=== PATIENT | male | born 1975 | race American Indian/Alaskan Native ===

== ENCOUNTER 2017-02-01 05:20 | Emergency (ER) | payer SELFPAY ==
[2017-02-01 05:52] LABS: Basophils % (Auto) 0.6 % (0.0-1.8); Eosinophils % (Auto) 3.4 % (0.0-4.3); Hematocrit 44.5 % (35.5-45.6); Hemoglobin 15.2 gm/dl (11.8-15.2); Mean Corpuscular HGB Conc 34 % (32-34); Mean Corpuscular Hemoglobin 30 pg (28-32); Mean Corpuscular Volume 87 fl (84-94); Platelet Count 199 K/mm3 (140-440); Red Blood Count 5.12 M/mm3 (3.65-5.03); Red Cell Distribution Width 14.4 % (13.2-15.2); White Blood Count 6.8 K/mm3 (4.5-11.0)
[2017-02-01 06:03] LABS: Anion Gap 19 mmol/L; Blood Urea Nitrogen 10 mg/dL (9-20); Carbon Dioxide 22 mmol/L (22-30); Chloride 100.9 mmol/L (98-107); Glucose 116 mg/dL (75-100); Potassium 3.9 mmol/L (3.6-5.0); Sodium 138 mmol/L (137-145)
[2017-02-01 06:51] LABS: Bilirubin,Urine NEG (Negative); Blood,Urine NEG (Negative); Ketones,Urine NEG (Negative); Leukocyte Esterase,Urine NEG (Negative); Mucus,Urine FEW /HPF; Nitrite,Urine NEG (Negative); Protein,Urine <15 mg/dL mg/dL (Negative); Urobilinogen,Urine < 2.0 mg/dL (<2.0)
--- NOTE | 2017-02-01 08:13 | Emergency Department Report ---
ED ENT HPI - General Chief complaint: Sore Throat Stated complaint: SORE THROAT/WEAKNESS Source: patient Mode of arrival: Ambulatory Limitations: No Limitations - History of Present Illness Initial comments: 41 year old male presents to ED with chronic sore throat and cough x6 months. patient states he thinks he may have swelling in his neck at times but he is unsure. patient is stable, neurologically intact and in no acute distress. patient denies fever, weight loss, hemoptysis, weakness. MD complaint: sore throat, difficulty swallowing -: Gradual, month(s) (6) Location: throat Severity: mild Consistency: intermittent Improves with: none Worsens with: swallowing, other (cough) Associated Symptoms: cough, pain with swallowing, sore throat. denies: fever, toothache, tinnitus, hearing loss, discharge from ear, rhinorrhea - Related Data Previous Rx's Medication Instructions Recorded Last Taken Type Ketorolac [Toradol] 10 mg PO Q6H PRN #20 tablet 02/01/17 Unknown Rx guaiFENesin DM [Robitussin Dm] 5 ml PO BID #120 ml 02/01/17 Unknown Rx Allergies Allergy/AdvReac Type Severity Reaction Status Date / Time No Known Allergies Allergy Verified 02/01/17 05:26 ED Dental HPI - General Chief complaint: Sore Throat Stated complaint: SORE THROAT/WEAKNESS Source: patient Mode of arrival: Ambulatory Limitations: No Limitations - Related Data Previous Rx's Medication Instructions Recorded Last Taken Type Ketorolac [Toradol] 10 mg PO Q6H PRN #20 tablet 02/01/17 Unknown Rx guaiFENesin DM [Robitussin Dm] 5 ml PO BID #120 ml 02/01/17 Unknown Rx Allergies Allergy/AdvReac Type Severity Reaction Status Date / Time No Known Allergies Allergy Verified 02/01/17 05:26 ED Review of Systems ROS: Stated complaint: SORE THROAT/WEAKNESS Other details as noted in HPI Constitutional: denies: chills, fever Eyes: denies: eye pain, eye discharge, vision change ENT: throat pain. denies: ear pain, dental pain, hearing loss, congestion Respiratory: cough. denies: shortness of breath, wheezing Cardiovascular: denies: chest pain, palpitations Endocrine: no symptoms reported Gastrointestinal: denies: abdominal pain, nausea, diarrhea Genitourinary: denies: urgency, dysuria Musculoskeletal: denies: back pain, joint swelling, arthralgia Skin: denies: rash, lesions Neurological: denies: headache, weakness, paresthesias Psychiatric: denies: anxiety, depression Hematological/Lymphatic: denies: easy bleeding, easy bruising ED Past Medical Hx - Past Medical History Previous Medical History?: No Hx Hypertension: Yes - Surgical History Past Surgical History?: No - Social History Smoking Status: Never Smoker Substance Use Type: Alcohol - Medications Home Medications: Home Medications Medication Instructions Recorded Confirmed Last Taken Type Ketorolac [Toradol] 10 mg PO Q6H PRN #20 tablet 02/01/17 Unknown Rx guaiFENesin DM [Robitussin Dm] 5 ml PO BID #120 ml 02/01/17 Unknown Rx ED Physical Exam - General Limitations: No Limitations General appearance: alert, in no apparent distress - Head Head exam: Present: atraumatic, normocephalic - Eye Eye exam: Present: normal appearance - ENT ENT exam: Present: normal exam, normal orophraynx, mucous membranes dry, mucous membranes moist, TM's normal bilaterally - Neck Neck exam: Present: normal inspection, full ROM. Absent: tenderness, lymphadenopathy - Respiratory Respiratory exam: Present: normal lung sounds bilaterally. Absent: respiratory distress, wheezes - Cardiovascular Cardiovascular Exam: Present: regular rate, normal rhythm. Absent: systolic murmur, diastolic murmur, rubs, gallop - GI/Abdominal GI/Abdominal exam: Present: soft, normal bowel sounds. Absent: tenderness, guarding - Rectal Rectal exam: Present: deferred - Extremities Exam Extremities exam: Present: normal inspection, full ROM - Back Exam Back exam: Present: normal inspection, full ROM - Neurological Exam Neurological exam: Present: alert, oriented X3, normal gait - Psychiatric Psychiatric exam: Present: normal affect, normal mood - Skin Skin exam: Present: warm, dry, intact, normal color. Absent: rash ED Course Vital Signs 02/01/17 02/01/17 02/01/17 05:21 05:26 10:39 Temperature 98.7 F 98.7 F 98 F Pulse Rate 85 85 62 Respiratory 18 18 18 Rate Blood Pressure 159/108 Blood Pressure 159/108 180/113 [Right] O2 Sat by Pulse 98 98 100 Oximetry 02/01/17 12:00 Temperature Pulse Rate 80 Respiratory 16 Rate Blood Pressure Blood Pressure 152/100 [Right] O2 Sat by Pulse 99 Oximetry ED Medical Decision Making - Lab Data Result diagrams: 02/01/17 05:35 02/01/17 05:35 Labs 02/01/17 02/01/17 02/01/17 05:35 05:35 08:10 WBC 6.8 RBC 5.12 H Hgb 15.2 Hct 44.5 MCV 87 MCH 30 MCHC 34 RDW 14.4 Plt Count 199 Lymph % (Auto) 32.4 [place] % (Auto) 12.3 H Eos % (Auto) 3.4 Baso % (Auto) 0.6 Lymph # 2.2 [place] # 0.8 Eos # 0.2 Baso # 0.0 Seg Neutrophils % 51.3 Seg Neutrophils # 3.5 Sodium 138 Potassium 3.9 Chloride 100.9 Carbon Dioxide 22 Anion Gap 19 BUN 10 Creatinine 0.8 Estimated GFR > 60 BUN/Creatinine Ratio 12.50 Glucose 116 H Calcium 9.0 TSH 2.010 Urine Color Urine Turbidity Urine pH Ur Specific [place] Urine Protein Urine Glucose (UA) Urine Ketones Urine Blood Urine Nitrite Urine Bilirubin Urine Urobilinogen Ur Leukocyte Esterase Urine WBC (Auto) Urine RBC (Auto) U Epithel Cells (Auto) Urine Mucus 02/01/17 Unknown WBC RBC Hgb Hct MCV MCH MCHC RDW Plt Count Lymph % (Auto) [place] % (Auto) Eos % (Auto) Baso % (Auto) Lymph # [place] # Eos # Baso # Seg Neutrophils % Seg Neutrophils # Sodium Potassium Chloride Carbon Dioxide Anion Gap BUN Creatinine Estimated GFR BUN/Creatinine Ratio Glucose Calcium TSH Urine Color Yellow Urine Turbidity Clear Urine pH 5.0 Ur Specific [place] 1.021 Urine Protein <15 mg/dl Urine Glucose (UA) Neg Urine Ketones Neg Urine Blood Neg Urine Nitrite Neg Urine Bilirubin Neg Urine Urobilinogen < 2.0 Ur Leukocyte Esterase Neg Urine WBC (Auto) 1.0 Urine RBC (Auto) 2.0 U Epithel Cells (Auto) < 1.0 Urine Mucus Few Vital Signs 02/01/17 02/01/17 02/01/17 05:21 05:26 10:39 Temperature 98.7 F 98.7 F 98 F Pulse Rate 85 85 62 Respiratory 18 18 18 Rate Blood Pressure 159/108 Blood Pressure 159/108 180/113 [Right] O2 Sat by Pulse 98 98 100 Oximetry 02/01/17 12:00 Temperature Pulse Rate 80 Respiratory 16 Rate Blood Pressure Blood Pressure 152/100 [Right] O2 Sat by Pulse 99 Oximetry - Radiology Data Radiology results: report reviewed Xr Chest limited inspiration with mild exaggerated cardiomediastinal silhouette and slightly crowded marking toward the bases. No pleural effusions or CHF. Intact bones. Limited inspiration without acute chest process. CT st neck with contrast Unremarkable CT neck. - Medical Decision Making 41 year old male presents to ED with chronic sore throat and subjective swelling. CT scan performed due to duration of pain to check for mass/cancerous process. patient has no acute process on CT scan of neck and no acute finding on chest xray. patient will be given referral to new PCP. patient is stable, neurologically intact and in no acute distress. Critical care attestation.: If time is entered above; I have spent that time in minutes in the direct care of this critically ill patient, excluding procedure time. ED Disposition Clinical Impression: Sore throat Disposition: DC-01 TO HOME OR SELFCARE Is pt being admited?: No Does the pt Need Aspirin: No Condition: Stable Prescriptions: guaiFENesin DM [Robitussin Dm] 5 ml PO BID #120 ml Ketorolac [Toradol] 10 mg PO Q6H PRN #20 tablet PRN Reason: Pain Referrals: PRIMARY CARE, [Primary Care Provider] - 3-5 Days JOSÉ MIGUEL CALVO MD [Staff Physician] - 3-5 Days Forms: Work/School Release Form(ED)
--- NOTE | 2017-02-01 09:46 | Cat Scan Report ---
CT NECK WITH CONTRAST: HISTORY: Chronic sore throat and swelling. TECHNIQUE: Helical CT following IV contrast. Sagittal and coronal reformatted images. FINDINGS: The parotid and submandibular glands are normal. The carotid sheaths are intact. There is no evidence of adenopathy within the neck. The thyroid gland is normal. The glottic structures are normal. The airway is patent. Strap musculature is unremarkable. Hyoid bone and thyroid cartilage are intact. 1.5 cm mucous retention cyst versus polyp is noted in the inferior left maxillary sinus. IMPRESSION: Unremarkable CT neck.
[2017-02-01] MEDS ORDERED: CATAPRES PO ONE (10:39)
--- NOTE | 2017-02-01 11:03 | XRay Report ---
CHEST 2 VIEWS INDICATION: Cough. COMPARISON: None similar. FINDINGS: PA and lateral chest radiographs demonstrate limited inspiration with mild exaggerated cardiomediastinal silhouette and slightly crowded markings toward the bases. No pleural effusions or CHF. Right hemidiaphragm slightly elevated. Intact bones. CONCLUSION: Limited inspiration without acute chest process, as described. Thank you for the opportunity to participate in this patient's care.
[2017-02-01 12:01] VITALS: BP 152/100
== END 2017-02-01 12:01 | disposition home or self-care (01) ==
LOC: ED 05:20
DX: J02.9 Acute pharyngitis, unspecified (principal); I10 Essential (primary) hypertension
CPT/HCPCS: 36415; 70491; 71020; 80048; 81001; 84443; 85025; 87116; 87430; 99284; Q9967

== ENCOUNTER 2017-05-13 02:19 | Emergency (ER) | payer SELFPAY ==
[2017-05-13 02:29] VITALS: BP 188/115
[2017-05-13 03:59] LABS: Hematocrit 44.6 % (35.5-45.6); Hemoglobin 15.1 gm/dl (11.8-15.2); Mean Corpuscular HGB Conc 34 % (32-34); Mean Corpuscular Hemoglobin 30 pg (28-32); Mean Corpuscular Volume 89 fl (84-94); Platelet Count 187 K/mm3 (140-440); Red Blood Count 5.03 M/mm3 (3.65-5.03); White Blood Count 5.1 K/mm3 (4.5-11.0)
[2017-05-13 04:17] LABS: Anion Gap 16 mmol/L; Blood Urea Nitrogen 13 mg/dL (9-20); Calcium 9.2 mg/dL (8.4-10.2); Carbon Dioxide 31 mmol/L (22-30); Glucose 107 mg/dL (75-100); Potassium 4.2 mmol/L (3.6-5.0); Sodium 142 mmol/L (137-145)
[2017-05-13 05:09] LABS: Basophils % (Manual) 0 % (0.0-1.8); Blastocytes % (Manual) 0 %; Diff Status Complete; Platelet Estimate Consistent w Auto; RBC Morphology Normal
--- NOTE | 2017-05-13 06:23 | Cat Scan Report ---
FINAL REPORT EXAM: CT HEAD/BRAIN WO CON HISTORY: neuro deficits \T\lt; 6hrs or sx present upon awakening TECHNIQUE: Routine axial imaging was obtained of the brain without IV contrast. FINDINGS: The ventricular system is appropriate in size and is symmetric. There is no evidence of acute stroke or hemorrhage. The posterior fossa structures are well-maintained. The sinuses reveal extensive secretions in the right maxillary, right ethmoidal and right sphenoid sinuses. The mastoid air cells well pneumatized. IMPRESSION: No evidence of acute stroke or hemorrhage. Right ethmoidal, maxillary and sphenoid sinusitis.
--- NOTE | 2017-05-13 07:35 | XRay Report ---
FINAL REPORT EXAM: XR CHEST ROUTINE 2V HISTORY: neuro deficit TECHNIQUE: Two views of the chest were submitted. There are no previous studies available for comparison. FINDINGS: The heart size and pulmonary vascularity appear normal. There are no localized infiltrates or effusions. The bones and soft tissues well maintained. IMPRESSION: No acute process in the chest.
== END 2017-05-13 10:07 | disposition left against medical advice (07) ==
LOC: ED 02:19
DX: R51 Headache (principal); R05 Cough; Z53.21 Procedure and treatment not carried out due to patient leaving prior to being seen by health care provider
CPT/HCPCS: 36415; 70450; 71020; 80048; 84484; 85007; 85025; 93005; 93010

== ENCOUNTER 2017-05-13 12:49 | Emergency (ER) | payer SELFPAY ==
[2017-05-13] MEDS ORDERED: CATAPRES PO ONE (18:19)
[2017-05-13] MEDS ORDERED: MOTRIN PO ONE (18:19)
--- NOTE | 2017-05-13 18:19 | Emergency Department Report ---
- General Chief Complaint: Upper Respiratory Infection Stated Complaint: CAMPOS/LEFT HAND FREEZE Time Seen by Provider: 05/13/17 17:28 Source: patient Mode of arrival: Ambulatory Limitations: Language Barrier - History of Present Illness Initial Comments: This is a 41-year-old male nontoxic, well nourished in appearance, no acute signs of distress presents to the ED complaining of headache, frontal sinus pain, and dry cough x3 days. Patient denies sick contact. Patient denies any head trauma. Patient denies worst headache or thunderclap headache. Patient describes headache as diffuse with level of 7/10 and describes it as aching/ throbbing. Patient denies blurry vision, chest pain, shortness of breathe, fever, chills, nausea, vomiting, sore throat, stiff neck, visual changes. Patient denies any trauma to the region. Denies any drug allergies. Past medical history includes hypertension that is treated with diet as per patient. MD Complaint: cough, nasal congestion, sinus pain -: Gradual, days(s) (3) Severity: mild Severity scale (0 -10): 7 Quality: aching, other (throbbing) Consistency: constant Improves With: nothing Worsens With: nothing Associated Symptoms: nasal congestion, cough. denies: fever, chills, myalgias, diaphoresis, headache, rhinorrhea, sore throat, stiff neck, chest pain, shortness of breath, abdominal pain, nausea, vomiting, diarrhea, dysuria, rash, confusion, right sweats, weight loss, epistaxis, hoarseness, ear pain Treatments Prior to Arrival: none - Related Data Previous Rx's Medication Instructions Recorded Last Taken Type Ketorolac [Toradol] 10 mg PO Q6H PRN #20 tablet 02/01/17 Unknown Rx guaiFENesin DM [Robitussin Dm] 5 ml PO BID #120 ml 02/01/17 Unknown Rx Amoxicillin/K Clav Tab [Augmentin 1 tab PO Q12HR 20 Days 05/13/17 Unknown Rx 875 mg] Butalb/Acetamin/Caff 50-325-40 1 tab PO Q6HR PRN #30 tab 05/13/17 Unknown Rx [Fioricet] Allergies Allergy/AdvReac Type Severity Reaction Status Date / Time No Known Allergies Allergy Verified 02/01/17 05:26 ED Review of Systems ROS: Stated complaint: CAMPOS/LEFT HAND FREEZE Other details as noted in HPI Constitutional: denies: chills, fever Eyes: denies: eye pain, eye discharge, vision change ENT: denies: ear pain, throat pain Respiratory: cough. denies: shortness of breath, wheezing Cardiovascular: denies: chest pain, palpitations Endocrine: no symptoms reported Gastrointestinal: denies: abdominal pain, nausea, diarrhea Genitourinary: denies: urgency, dysuria Musculoskeletal: denies: back pain, joint swelling, arthralgia Skin: denies: rash, lesions Neurological: denies: headache, weakness, paresthesias Psychiatric: denies: anxiety, depression Hematological/Lymphatic: denies: easy bleeding, easy bruising ED Past Medical Hx - Past Medical History Hx Hypertension: Yes (denies meds) - Surgical History Past Surgical History?: No - Social History Smoking Status: Never Smoker Substance Use Type: Alcohol - Medications Home Medications: Home Medications Medication Instructions Recorded Confirmed Last Taken Type Ketorolac [Toradol] 10 mg PO Q6H PRN #20 tablet 02/01/17 Unknown Rx guaiFENesin DM [Robitussin Dm] 5 ml PO BID #120 ml 02/01/17 Unknown Rx Amoxicillin/K Clav Tab [Augmentin 1 tab PO Q12HR 20 Days 05/13/17 Unknown Rx 875 mg] Butalb/Acetamin/Caff 50-325-40 1 tab PO Q6HR PRN #30 tab 05/13/17 Unknown Rx [Fioricet] ED Physical Exam - General Limitations: Language Barrier General appearance: alert, in no apparent distress - Head Head exam: Present: atraumatic, normocephalic, normal inspection - Eye Eye exam: Present: normal appearance, PERRL, EOMI. Absent: scleral icterus, conjunctival injection, nystagmus, periorbital swelling, periorbital tenderness Pupils: Present: normal accommodation - ENT ENT exam: Present: normal exam, normal orophraynx, mucous membranes moist, TM's normal bilaterally, normal external ear exam - Neck Neck exam: Present: normal inspection, full ROM. Absent: tenderness, meningismus, lymphadenopathy, thyromegaly - Respiratory Respiratory exam: Present: normal lung sounds bilaterally. Absent: respiratory distress, wheezes, rales, rhonchi, stridor, chest wall tenderness, accessory muscle use, decreased breath sounds, prolonged expiratory - Cardiovascular Cardiovascular Exam: Present: regular rate, normal rhythm, normal heart sounds. Absent: bradycardia, tachycardia, irregular rhythm, systolic murmur, diastolic murmur, rubs, gallop - GI/Abdominal GI/Abdominal exam: Present: soft, normal bowel sounds. Absent: distended, tenderness, guarding, rebound, rigid, diminished bowel sounds - Rectal Rectal exam: Present: deferred - Extremities Exam Extremities exam: Present: normal inspection, full ROM, normal capillary refill. Absent: tenderness, pedal edema, joint swelling, calf tenderness - Back Exam Back exam: Present: normal inspection, full ROM. Absent: tenderness, CVA tenderness (R), CVA tenderness (L), muscle spasm, paraspinal tenderness, vertebral tenderness, rash noted - Neurological Exam Neurological exam: Present: alert, oriented X3, CN II-XII intact, normal gait, reflexes normal - Expanded Neurological Exam Expanded Patient oriented to: Present: person, place, time Speech: Present: fluid speech Cranial nerves: EOM's Intact: Normal, Gag Reflex: Normal, Tongue Deviation: Normal, Nystagmus: Normal, Facial Sensation: Normal, Facial Palsy with Forehead Movement: Normal, Facial Palsy without Forehead Movement: Normal Cerebellar function: Finger to Nose: Normal, Heel to Petty: Normal, Romberg: Normal Upper motor neuron: Felice Neglect: Normal, Pronator Drift: Normal, Babinski Sign : Normal, Sensory Extinction: Normal Sensory exam: Upper Extremity Light Touch: Normal, Upper Extremity Pin Prick: Normal, Upper Extremity Temperature: Normal, UE 2 Point Discrimination: Normal, Lower Extremity Light Touch: Normal, Lower Extremity Pin Prick: Normal, Lower Extremity Temperature: Normal, LE 2 Point Discrimination: Normal Motor strength exam: RUE: 5, LUE: 5, RLE: 5, LLE: 5 DTR: bicep (R): 2+, bicep (L): 2+, tricep (R): 2+, tricep (L): 2+, knee (R): 2+ , knee (L): 2+, ankle (R): 2+, ankle (L): 2+ Best Eye Response ([place]): (4) open spontaneously Best Motor Response ([place]): (6) obeys commands Best Verbal Response ([place]): (5) oriented [place] Total: 15 - Psychiatric Psychiatric exam: Present: normal affect, normal mood - Skin Skin exam: Present: warm, dry, intact, normal color. Absent: rash - Other Other exam information: Frontal sinus tenderness with palpation ED Course Vital Signs 05/13/17 13:11 Temperature 98.1 F Pulse Rate 69 Respiratory 18 Rate Blood Pressure 165/106 O2 Sat by Pulse 99 Oximetry - Reevaluation(s) Reevaluation #1: 05/13/17 18:25 Patient is eating [employer] and speaking in full sentences with no signs of distress noted. ED Medical Decision Making - Medical Decision Making This is a 41-year-old male that presents with sinusitis. CT scan of head/brain and chest x-ray has been obtained with sinusitis. Dictated by radiologist. Patient notified of CT findings and x-ray results with normal by the patient. Patient received ibuprofen 800 mg by mouth in the ED for headache and Catapres 0.1 mg by mouth. Blood pressure decreased after Catapres. I educated instruct the patient about risks of having hypertension and patient stated he is aware and will follow up with a primary care doctor. I instructed the patient to keep a blood pressure diary and presented to the primary care doctor. Patient was instructed to follow-up with a primary care doctor in 24 hours or if symptoms worsen and continue return to emergency room as soon as possible possible. At time time of discharge, the patient does not seem toxic or ill in appearance. No acute signs of distress noted. Patient agrees to discharge treatment plan of care. No further questions noted by the patient. Critical care attestation.: If time is entered above; I have spent that time in minutes in the direct care of this critically ill patient, excluding procedure time. ED Disposition Clinical Impression: Hypertension Qualifiers: Hypertension type: unspecified Qualified Code(s): I10 - Essential (primary) hypertension Sinusitis Qualifiers: Sinusitis location: frontal Chronicity: acute Recurrence: non-recurrent Qualified Code(s): J01.10 - Acute frontal sinusitis, unspecified Disposition: - TO HOME OR SELFCARE Is pt being admited?: No Does the pt Need Aspirin: No Condition: Stable Instructions: Hypertension (ED), Low Sodium Diet (ED), Ibuprofen (By mouth), Amoxicillin/Clavulanate Potassium (By mouth), Sinusitis (ED) Additional Instructions: Follow-up with a primary care doctor in 24 hours for your hypertension or if symptoms worsen and continue return to emergency room as soon as possible possible. Keep a daily diary of your blood pressure and presented to your primary care doctor. Prescriptions: Amoxicillin/K Clav Tab [Augmentin 875 mg] 1 tab PO Q12HR 20 Days Butalb/Acetamin/Caff 50-325-40 [Fioricet] 1 tab PO Q6HR PRN #30 tab PRN Reason: Headache Referrals: [facility] [Outside] - 3-5 Days [facility] [Outside] - 3-5 Days PRIMARY CARE, [Primary Care Provider] - 24 Hours BENNIE SHETH MD [Staff Physician] - 24 Hours Forms: Work/School Release Form(ED)
--- NOTE | 2017-05-13 18:32 | XRay Report ---
FINAL REPORT PROCEDURE: XR CHEST 1V AP TECHNIQUE: Chest radiograph anteroposterior view. CPT 09860 HISTORY: cough COMPARISON: Chest x-ray dated the same day FINDINGS: Heart: Normal. Mediastinum/Vessels: Normal. Lungs/Pleural space: Normal. Bony thorax: No acute osseous abnormality. Life support devices: None. IMPRESSION: No acute cardiopulmonary abnormality.
[2017-05-13 20:39] VITALS: BP 160/98
== END 2017-05-13 20:55 | disposition home or self-care (01) ==
LOC: ED 12:49
DX: I10 Essential (primary) hypertension (principal); J32.1 Chronic frontal sinusitis
CPT/HCPCS: 71010; 99283

== ENCOUNTER 2017-05-22 01:55 | Emergency (ER) | payer SELFPAY ==
[2017-05-22 03:21] LABS: Basophils % (Auto) 0.7 % (0.0-1.8); Eosinophils % (Auto) 2.9 % (0.0-4.3); Hematocrit 45.6 % (35.5-45.6); Hemoglobin 15.6 gm/dl (11.8-15.2); Mean Corpuscular HGB Conc 34 % (32-34); Mean Corpuscular Hemoglobin 30 pg (28-32); Mean Corpuscular Volume 88 fl (84-94); Platelet Count 226 K/mm3 (140-440); Red Blood Count 5.18 M/mm3 (3.65-5.03); Red Cell Distribution Width 14.5 % (13.2-15.2); White Blood Count 7.1 K/mm3 (4.5-11.0)
[2017-05-22 03:32] LABS: Anion Gap 20 mmol/L; BUN/Creatinine Ratio 21; Blood Urea Nitrogen 19 mg/dL (9-20); Calcium 9.8 mg/dL (8.4-10.2); Carbon Dioxide 27 mmol/L (22-30); Chloride 96.9 mmol/L (98-107); Glucose 129 mg/dL (75-100); Potassium 3.2 mmol/L (3.6-5.0); Sodium 141 mmol/L (137-145)
[2017-05-22 04:02] LABS: Bilirubin,Urine NEG (Negative); Blood,Urine NEG (Negative); Ketones,Urine NEG (Negative); Leukocyte Esterase,Urine NEG (Negative); Mucus,Urine FEW /HPF; Nitrite,Urine NEG (Negative); Protein,Urine <15 mg/dL mg/dL (Negative); Urobilinogen,Urine < 2.0 mg/dL (<2.0); WBC,Urine < 1.0 /HPF (0.0-6.0)
--- NOTE | 2017-05-22 08:25 | XRay Report ---
CHEST 2 VIEWS INDICATION: Shortness of breath. Epigastric pain radiating to upper back for 3 days. Cough. COMPARISON: 05/13/2017 FINDINGS: PA and lateral chest radiographs demonstrate slightly better inspiration with normal cardiomediastinal silhouette. Right hemidiaphragm again slightly elevated. Slightly prominent/crowded infrahilar markings. No pleural effusions or CHF. Intact bones. CONCLUSION: No acute chest process or significant interval change, as described. Thank you for the opportunity to participate in this patient's care.
[2017-05-22] MEDS ORDERED: K-DUR PO ONE (10:22)
--- NOTE | 2017-05-22 10:42 | Emergency Department Report ---
ED Chest Pain HPI - General Chief Complaint: Chest Pain Stated Complaint: ABD PAIN Time Seen by Provider: 05/22/17 10:20 Source: patient Mode of arrival: Ambulatory Limitations: No Limitations - History of Present Illness Initial Comments: This is a 41-year-old -Swiss male who presents to the emergency department with complaint of midsternal left-sided chest pain with some radiation to the upper back that has been going on for the past 3 days. It is associated with a mixed dry and productive cough and some shortness of breath. He denies any nausea, vomiting, diaphoresis. He has not taken anything for his symptoms prior to presentation. He has a primary care physician in [place] but cannot currently regular name and has not seen them regarding his symptoms. He has a past medical history of hypertension. He denies any tobacco or illicit drug use or abuse. No recent travel or sick contacts at home. Severity scale (0 -10): 8 - Related Data Previous Rx's Medication Instructions Recorded Last Taken Type Ketorolac [Toradol] 10 mg PO Q6H PRN #20 tablet 02/01/17 Unknown Rx guaiFENesin DM [Robitussin Dm] 5 ml PO BID #120 ml 02/01/17 Unknown Rx Amoxicillin/K Clav Tab [Augmentin 1 tab PO Q12HR 20 Days 05/13/17 Unknown Rx 875 mg] Butalb/Acetamin/Caff 50-325-40 1 tab PO Q6HR PRN #30 tab 05/13/17 Unknown Rx [Fioricet] Allergies Allergy/AdvReac Type Severity Reaction Status Date / Time No Known Allergies Allergy Verified 02/01/17 05:26 Heart Score - HEART Score History: Slightly suspicious EKG: Non-specific Age: < 45 Risk factors: 1-2 risk factors Troponin: < normal limit HEART Score: 2 - Critical Actions Critical Actions: 0-3 pts:0.9-1.7%risk of adverse cardiac event.Candidate for discharge ED Review of Systems ROS: Stated complaint: ABD PAIN Other details as noted in HPI Comment: All other systems reviewed and negative Constitutional: denies: chills, fever Eyes: denies: eye pain, eye discharge, vision change ENT: denies: ear pain, throat pain Respiratory: cough, shortness of breath Cardiovascular: chest pain. denies: palpitations Gastrointestinal: denies: abdominal pain, nausea, diarrhea Genitourinary: denies: urgency, dysuria Musculoskeletal: back pain. denies: arthralgia Skin: denies: rash, lesions Neurological: denies: headache, weakness, paresthesias ED Past Medical Hx - Past Medical History Previous Medical History?: Yes Hx Hypertension: Yes (denies meds) - Surgical History Past Surgical History?: No - Social History Smoking Status: Former Smoker Substance Use Type: Alcohol - Medications Home Medications: Home Medications Medication Instructions Recorded Confirmed Last Taken Type Ketorolac [Toradol] 10 mg PO Q6H PRN #20 tablet 02/01/17 Unknown Rx guaiFENesin DM [Robitussin Dm] 5 ml PO BID #120 ml 02/01/17 Unknown Rx Amoxicillin/K Clav Tab [Augmentin 1 tab PO Q12HR 20 Days 05/13/17 Unknown Rx 875 mg] Butalb/Acetamin/Caff 50-325-40 1 tab PO Q6HR PRN #30 tab 05/13/17 Unknown Rx [Fioricet] ED Physical Exam - General Limitations: No Limitations - Other Other exam information: GENERAL: The patient is well-developed well-nourished. HENT: Normocephalic. Atraumatic. Patient has moist mucous membranes. EYES: Extraocular motions are intact. Pupils equal reactive to light bilaterally. NECK: Supple. Trachea is midline. CHEST/LUNGS: Clear to auscultation. There is no respiratory distress noted. HEART/CARDIOVASCULAR: Regular. There is no tachycardia. There is no gallop rub or murmur. ABDOMEN: Abdomen is soft, nontender. Patient has normal bowel sounds. There is no abdominal distention. SKIN: Skin is warm and dry. NEURO: The patient is awake, alert, and oriented. The patient is cooperative. The patient has no focal neurologic deficits. The patient has normal speech. MUSCULOSKELETAL: There is no tenderness or deformity. There is no limitation range of motion. There is no evidence of acute injury. ED Course Vital Signs 05/22/17 05/22/17 05/22/17 02:01 02:18 07:38 Temperature 98.3 F 98.3 F 98.0 F Pulse Rate 107 H 101 H 82 Respiratory 20 18 16 Rate Blood Pressure 130/90 130/90 129/91 Blood Pressure [Left] O2 Sat by Pulse 98 98 99 Oximetry 05/22/17 05/22/1705/22/17 08:33 08:41 11:11 Temperature 97.9 F 97.6 F Pulse Rate 74 79 Respiratory 18 18 18 Rate Blood Pressure Blood Pressure 129/90 132/98 [Left] O2 Sat by Pulse 100 Oximetry JLUIS score - Jluis Score Age > 65: (0) No Aspirin use within the Past 7 Days: (0) No 3 or more CAD Risk Factors: (0) No 2 or more Angina events in past 24 hrs: (1) Yes Known CAD with more than 50% Stenosis: (0) No Elevated Cardiac Markers: (0) No ST Deviation Greater than 0.5mm: (0) No JLUIS Score: 1 ED Medical Decision Making - Lab Data Result diagrams: 05/22/17 02:40 05/22/17 02:40 - EKG Data -: EKG Interpreted by Me EKG shows normal: sinus rhythm, axis (LAD), intervals, QRS complexes, ST-T waves (T-wave inversions to the inferior leads) Rate: normal - EKG Data When compared to previous EKG there are: no significant change Interpretation: unchanged when compared t (05/18/17) - Radiology Data Radiology results: image reviewed interpreted by me: Chest x-ray does not show any acute process. There are no pleural effusions, obvious pneumonia and there is no pneumothorax. - Medical Decision Making 41-year-old male presents with a 3 day history of some chest pain with some radiation towards the back. By the time I have seen him his pain is almost completely resolved and has completely resolved just prior to discharge. EKG does not show any signs of ST elevation RI. There are a few T-wave inversions to the inferior leads that are unchanged but there is no sign of dysrhythmia. Chest x-ray does not show any pleural effusion, pneumothorax, pneumonia or any other acute process. His labs have been unremarkable including negative troponins 3 and a negative d-dimer. He is low on the Heart score criteria. He has a JLUIS score of one if his pain is considered angina and 0 if not. He does not have many risk factors for coronary artery disease. He has good follow -up with a primary care physician Jono Phoenix. He will be given a referral for cardiology to follow up and possibly get an outpatient stress test. However he has agreed to return to the emergency department with any recurrence of his chest pain or any acute distress. - Differential Diagnosis RI, PE, costochondritis, pneumonia, GERD Critical Care Time: No Critical care attestation.: If time is entered above; I have spent that time in minutes in the direct care of this critically ill patient, excluding procedure time. ED Disposition Clinical Impression: Chest pain Qualifiers: Chest pain type: unspecified Qualified Code(s): R07.9 - Chest pain, unspecified Disposition: DC-01 TO HOME OR SELFCARE Is pt being admited?: No Condition: Stable Instructions: Chest Pain (ED) Additional Instructions: Please follow-up with your primary care physician in the next few days. I have given you a referral for a local fur clipper, Dr. Bill, to follow up regarding your chest pains. However you should return to the emergency department with any recurrence of your chest pain or any acute distress. Referrals: PRIMARY MD STACY [Primary Care Provider] - 3-5 Days FRANKIE BILL MD [Staff Physician] - 3-5 Days Time of Disposition: 11:54
[2017-05-22] MEDS ORDERED: BABY ASPIRIN PO ONE (10:43)
[2017-05-22 11:51] VITALS: BP 132/98
== END 2017-05-22 12:20 | disposition home or self-care (01) ==
LOC: ED 01:55
DX: R07.89 Other chest pain (principal); R05 Cough; R06.02 Shortness of breath; I10 Essential (primary) hypertension; Z87.891 Personal history of nicotine dependence
CPT/HCPCS: 36415; 71020; 80048; 81001; 84484; 85025; 85379; 93005; 93010; 99284

== ENCOUNTER 2019-01-14 06:24 | Emergency (ER) | payer SELFPAY ==
[2019-01-14 06:31] VITALS: BP 161/101
--- NOTE | 2019-01-14 07:10 | XRay Report ---
PROCEDURE: XR RIBS UNI W PA CHEST 3+V RT TECHNIQUE: A PA view the chest was obtained along with 4 views of the right ribs. HISTORY: cough with rib pain COMPARISONS: Chest x-ray 02/01/2017. FINDINGS: There is a healing fracture along the anterolateral aspect of the right fifth rib which appears subac laura in age. There are no additional rib fractures. The lungs are clear. Pleural fluid is not seen. Th ere is no evidence of pneumothorax. The heart size is normal. IMPRESSION: Healing subacute fracture along the anterolateral aspect of the right fifth rib.. This document is electronically signed by Anderson Steve MD., January 14 2019 08:08:16 AM ET
--- NOTE | 2019-01-14 08:05 | Emergency Department Report ---
Minor Respiratory - HPI Chief Complaint: Upper Respiratory Infection Stated Complaint: RT SIDE RIB PAIN Time Seen by Provider: 01/14/19 07:47 Minor Respiratory: Yes Cough, No Rhinorrhea, No Sore Throat, No Able to Tolerate Fluids, No Ear Pain, No Sick Contacts, No Hemoptysis, No Chest Pain, No Shortness of Breath, No Fever Other History: This is a 43-year-old male who presents to ED complaining of persistent coughing for the past 2 months. Patient is also complaining of pain to the right with associated with coughing. Patient states cough and is persistent continuous symptoms about last about 1 minute. Patient states he was recently prescribed losartan and has been taken that for 20 days now. Patient states she has been taking Tessalon pearls which was also prescribed him by his primary care physician which is not relieving his cough. He denies all other symptoms. ED Review of Systems ROS: Stated complaint: RT SIDE RIB PAIN Other details as noted in HPI Comment: All other systems reviewed and negative ED Past Medical Hx - Past Medical History Previous Medical History?: Yes Hx Hypertension: Yes - Surgical History Past Surgical History?: No Hx Appendectomy: Yes - Social History Smoking Status: Never Smoker Substance Use Type: Alcohol - Medications Home Medications: Home Medications Medication Instructions Recorded Confirmed Last Taken Type Ketorolac [Toradol] 10 mg PO Q6H PRN #20 tablet 02/01/17 Unknown Rx guaiFENesin DM [Robitussin Dm] 5 ml PO BID #120 ml 02/01/17 Unknown Rx Amoxicillin/K Clav Tab [Augmentin 1 tab PO Q12HR 20 Days tab 05/13/17 Unknown Rx 875 mg] Butalb/Acetamin/Caff 50-325-40 1 tab PO Q6HR PRN #30 tab 05/13/17 Unknown Rx [Fioricet] Amoxicillin/K Clav Tab [Augmentin 1 tab PO Q12HR #20 tab 06/14/17 Unknown Rx 875 mg] Nystas/Diphen/Xyl Visc/Mylanta 15 ml MM DAILY 10 Days udc 06/14/17 Unknown Rx [Magic Mouthwash] ALBUTEROL Inhaler(NF) [VENTOLIN 2 puff IH Q4H PRN #1 inha 08/12/18 Unknown Rx Inhaler(NF)] Clindamycin [Clindamycin CAP] 300 mg PO Q6H 10 Days #40 capsule 08/12/18 Unkno wn Rx Dexamethasone [Decadron] 4 mg PO Q12H 2 Days #4 tablet 08/12/18 Unknown Rx Ibuprofen [Ibuprofen 800] 800 mg PO TID PRN #30 tablet 08/12/18 Unknown Rx Oxymetazoline 0.05% [Afrin] 2 spray NS BID 3 Days #1 bottle 08/12/18 Unknown Rx diphenhydrAMINE [Benadryl CAP] 25 mg PO Q6HR PRN #30 capsule 08/12/18 Unknown Rx Acetamin/Codeine 120-12Mg/5 ml 5 ml PO TID PRN #100 ml 01/14/19 Unknown Rx [Tylenol/Codeine] Azithromycin [Zithromax] 250 mg PO DAILY #1 pack 01/14/19 Unknown Rx Minor Respiratory Exam - Exam General: Vital signs noted. No distress. Alert and acting appropriately. HEENT: Yes Moist Mucous Membranes, No Pharyngeal Erythema, No Pharyngeal Exudates, No Rhinorrhea, No Conjuctival Injection, No Frontal Tenderness, No Maxillary Tenderness Ear: Neither TM Bulge, Neither TM Erythema, Neither EAC Pain, Neither EAC Discharge Neck: Yes Supple, No Adenopathy Lungs: Yes Good Air Exchange, No Wheezes, No Ronchi, No Stridor, No Cough, No Labored Respirations, No Retractions, No Use of Accessory Muscles, No Other Abnormal Lung Sounds Heart: Yes Regular, No Murmur Abdomen: Yes Normal Bowel Sounds, No Tenderness, No Peritoneal Signs Skin: No Rash, No Edema Neurologic: Alert and oriented, no deficits. Musculoskeletal: Unremarkable. ED Course Vital Signs 01/14/19 06:30 Temperature 97.8 F Pulse Rate 70 Respiratory 18 Rate Blood Pressure 161/101 O2 Sat by Pulse 99 Oximetry ED Medical Decision Making - Radiology Data Radiology results: report reviewed, image reviewed HISTORY: cough with rib pain COMPARISONS: Chest x-ray 02/01/2017. FINDINGS: There is a healing fracture along the anterolateral aspect of the right fifth rib which appears subacute in age. There are no additional rib fractures. The lungs are clear. Pleural fluid is not seen. There is no evidence of pneumothorax. The heart size is normal. IMPRESSION: Healing subacute fracture along the anterolateral aspect of the right fifth rib.. This document is electronically signed by Anderson Steve MD., January 14 2019 08:08:16 AM ET Transcribed By: RB Dictated By: ANDERSON STEVE MD Electronically Authenticated By: ANDERSON STEVE MD Signed Date/Time: 01/14/19 0710 - Medical Decision Making 43-year-old male presents with bronchitis/subacute fifth rib fracture. Chest x-ray shows his findings, see above. Discussed findings with the patient. Discussed with patient to follow up with his primary care physician to possibly changing his blood pressure medication which could be causing the persistent cough. Azithromycin pack will be prescribed for prophylaxis. Patient will also be given Tylenol with Codeine which would help with suppression of cough and help with the pain. Other than an elevated blood pressure, Vital signs are normal patient in no acute distress. Patient to continue taking his blood pressure medication until follow-up with primary care physician Speaking clear sentences Critical care attestation.: If time is entered above; I have spent that time in minutes in the direct care of this critically ill patient, excluding procedure time. ED Disposition Clinical Impression: Bronchitis, Right rib fracture Disposition: DC- TO HOME OR SELFCARE Is pt being admited?: No Does the pt Need Aspirin: No Condition: Stable Instructions: Rib Fracture (ED), Chronic Bronchitis (ED) Additional Instructions: Make sure to follow up with the primary care physician as discussed. Take all your medications as you've been prescribed. If you have any worsening symptoms or develop new symptoms please return to ED immediately. Prescriptions: Acetamin/Codeine 120-12Mg/5 ml [Tylenol/Codeine] 5 ml PO TID PRN #100 ml PRN Reason: Pain Azithromycin [Zithromax] 250 mg PO DAILY #1 pack Referrals: JO ANN DORSEY MD [Primary Care Provider] - 3-5 Days Forms: Work/School Release Form(ED) Time of Disposition: 08:18
== END 2019-01-14 08:38 | disposition home or self-care (01) ==
LOC: ED 06:24
DX: S22.31XA Fracture of one rib, right side, initial encounter for closed fracture (principal); J40 Bronchitis, not specified as acute or chronic; I10 Essential (primary) hypertension; Z90.89 Acquired absence of other organs; X58.XXXA Exposure to other specified factors, initial encounter; Y93.89 Activity, other specified; Y92.89 Other specified places as the place of occurrence of the external cause; Y99.8 Other external cause status

== ENCOUNTER 2019-02-08 06:58 | Emergency (ER) | payer OTHER ==
--- NOTE | 2019-02-08 07:32 | Emergency Department Report ---
Minor Respiratory <ROXANNЮЛИЯ C - Last Filed: 02/08/19 07:52> - HPI Duration: 1 week Pain Location: Chest Severity: moderate Minor Respiratory: Yes Able to Tolerate Fluids, Yes Cough, No Rhinorrhea, No Sore Throat, No Ear Pain, No Sick Contacts, No Hemoptysis, No Chest Pain, No Shortness of Breath, No Fever Other History: cough x 1 week, now with R lower chest wall pain. no SOB. nonsmoker <BECCARENE T - Last Filed: 02/08/19 08:37> - HPI Chief Complaint: Upper Respiratory Infection Stated Complaint: RIB PAIN COUGH Time Seen by Provider: 02/08/19 07:25 ED Review of Systems ROS: Stated complaint: RIB PAIN COUGH Other details as noted in HPI <ЮЛИЯ HACKETT - Last Filed: 02/08/19 07:52> ROS: Stated complaint: RIB PAIN COUGH Other details as noted in HPI Comment: All other systems reviewed and negative Respiratory: see HPI <RENE HUDSON Jose - Last Filed: 02/08/19 08:37> ED Past Medical Hx <ROXANNЮЛИЯ C - Last Filed: 02/08/19 07:52> - Past Medical History Hx Hypertension: Yes - Surgical History Hx Appendectomy: Yes - Social History Smoking Status: Never Smoker Substance Use Type: None <BECCARENE Jose - Last Filed: 02/08/19 08:37> - Medications Home Medications: Home Medications Medication Instructions Recorded Confirmed Last Taken Type Ketorolac [Toradol] 10 mg PO Q6H PRN #20 tablet 02/01/17 Unknown Rx guaiFENesin DM [Robitussin Dm] 5 ml PO BID #120 ml 02/01/17 Unknown Rx Amoxicillin/K Clav Tab [Augmentin 1 tab PO Q12HR 20 Days tab 05/13/17 Unknown Rx 875 mg] Butalb/Acetamin/Caff 50-325-40 1 tab PO Q6HR PRN #30 tab 05/13/17 Unknown Rx [Fioricet] Amoxicillin/K Clav Tab [Augmentin 1 tab PO Q12HR #20 tab 06/14/17 Unknown Rx 875 mg] Nystas/Diphen/Xyl Visc/Mylanta 15 ml MM DAILY 10 Days udc 06/14/17 Unknown Rx [Magic Mouthwash] ALBUTEROL Inhaler(NF) [VENTOLIN 2 puff IH Q4H PRN #1 inha 08/12/18 Unknown Rx Inhaler(NF)] Clindamycin [Clindamycin CAP] 300 mg PO Q6H 10 Days #40 capsule 08/12/18 Unknown Rx Ibuprofen [Ibuprofen 800] 800 mg PO TID PRN #30 tablet 08/12/18 Unknown Rx Oxymetazoline 0.05% [Afrin] 2 spray NS BID 3 Days #1 bottle 08/12/18 Unknown Rx dexAMETHasone [Decadron] 4 mg PO Q12H 2 Days #4 tablet 08/12/18 Unknown Rx diphenhydrAMINE [Benadryl CAP] 25 mg PO Q6HR PRN #30 capsule 08/12/18 Unknown Rx Acetamin/Codeine 120-12Mg/5 ml 5 ml PO TID PRN #100 ml 01/14/19 Unknown Rx [Tylenol/Codeine] Azithromycin [Zithromax] 250 mg PO DAILY #1 pack 01/14/19 Unknown Rx Benzonatate [Tessalon Perles] 100 mg PO Q8HR #21 capsule 02/08/19 Unknown Rx Lidocaine [Lidoderm] 1 each TP DAILY #15 adh..patch 02/08/19 Unknown Rx Naproxen [Naprosyn] 500 mg PO BID #20 tablet 02/08/19 Unknown Rx predniSONE [Deltasone] 40 mg PO QDAY #10 tab 02/08/19 Unknown Rx Minor Respiratory Exam - Exam General: Vital signs noted. No distress. Alert and acting appropriately. Neurologic: Alert and oriented, no deficits. Musculoskeletal: Unremarkable. <ЮЛИЯ HACKETT - Last Filed: 02/08/19 07:52> - Exam General: Vital signs noted. No distress. Alert and acting appropriately. HEENT: Yes Moist Mucous Membranes, No Pharyngeal Erythema, No Pharyngeal Exudates, No Rhinorrhea, No Conjuctival Injection, No Frontal Tenderness, No Maxillary Tenderness Neck: Yes Supple, No Adenopathy Lungs: Yes Good Air Exchange, No Wheezes, No Ronchi, No Stridor, No Cough, No Labored Respirations, No Retractions, No Use of Accessory Muscles, No Other Abnormal Lung Sounds Heart: Yes Regular, No Murmur Abdomen: Yes Normal Bowel Sounds, No Tenderness, No Peritoneal Signs Skin: No Rash, No Edema Neurologic: Alert and oriented, no deficits. Musculoskeletal: Exquisitely tender R lower chest wall <RENE HUDSON T - Last Filed: 02/08/19 08:37> ED Course Vital Signs 02/08/19 07:05 Temperature 97.6 F Pulse Rate 75 Respiratory 18 Rate Blood Pressure 159/104 O2 Sat by Pulse 100 Oximetry - Reevaluation(s) Reevaluation #1: 02/08/19 07:53 Code met called while patient was in ER x-ray. PA chest x-ray was performed. When patient tried to lift his arms to obtain a lateral x-ray he had worsening right sided chest pain with movement and then went down to the ground knees first. Patient state he went down to the ground due to significant pain. There was no reports of dizziness or syncope. I discussed case with treating provider Rene. I instructed nurse to get stat repeat vitals and ekg upon return back to [facility]. <ЮЛИЯ HACKETT - Last Filed: 02/08/19 07:52> Vital Signs 02/08/19 07:05 Temperature 97.6 F Pulse Rate 75 Respiratory 18 Rate Blood Pressure 159/104 O2 Sat by Pulse 100 Oximetry <RENE HUDSON T - Last Filed: 02/08/19 08:37> ED Medical Decision Making - Radiology Data Radiology results: report reviewed, image reviewed interpreted by me: thomas naf - Medical Decision Making cough with rib pain exam suggests costochondritis Wells PE low risk, PERC negative xray pending cxr neg, needs to monitor BP and f/u PCP - Differential Diagnosis costochondiritis, bronchitis, pna <RENE HUDSON T - Last Filed: 02/08/19 08:37> Critical care attestation.: If time is entered above; I have spent that time in minutes in the direct care of this critically ill patient, excluding procedure time. <ЮЛИЯ HACKETT - Last Filed: 02/08/19 07:52> Critical care attestation.: If time is entered above; I have spent that time in minutes in the direct care of this critically ill patient, excluding procedure time. <RENE HUDSON T - Last Filed: 02/08/19 08:37> ED Disposition <ЮЛИЯ HACKETT - Last Filed: 02/08/19 07:52> Is pt being admited?: No Does the pt Need Aspirin: No Time of Disposition: 08:37 <RENE HUDSON T - Last Filed: 02/08/19 08:37> Clinical Impression: Cough, Chest wall pain, Elevated blood pressure reading Disposition: TO HOME OR SELFCARE Condition: Good Instructions: Costochondritis (ED) Prescriptions: predniSONE [Deltasone] 40 mg PO QDAY #10 tab Lidocaine [Lidoderm] 1 each TP DAILY #15 adh..patch Naproxen [Naprosyn] 500 mg PO BID #20 tablet Benzonatate [Tessalon Perles] 100 mg PO Q8HR #21 capsule Referrals: JO ANN DORSEY MD [Primary Care Provider] - 3-5 Days
[2019-02-08] MEDS ORDERED: NORCO 5/325 PO ONE (08:08)
--- NOTE | 2019-02-08 08:13 | XRay Report ---
PROCEDURE: XR CHEST ROUTINE 2V TECHNIQUE: Chest, PA and lateral HISTORY: cough/rib pain COMPARISON: 01/14/2019 FINDINGS: The heart size is normal. There is no pulmonary vascular congestion seen. Mediastinal contours are normal. Lungs are clear. There is no pleural effusion seen. There is no pneumothorax seen. Again seen is a healing fracture of the anterolateral fifth rib on the right. IMPRESSION: There is an unchanged healed fracture of the anterolateral fifth rib on the right. Otherw ise no acute abnormality seen. This document is electronically signed by Ashley Allan MD., February 08 2019 08:11:41 AM ET
[2019-02-08 08:37] VITALS: BP 162/105
== END 2019-02-08 08:46 | disposition home or self-care (01) ==
LOC: ED 06:58
DX: R07.89 Other chest pain (principal); R05 Cough; I10 Essential (primary) hypertension; Z90.49 Acquired absence of other specified parts of digestive tract; Z79.899 Other long term (current) drug therapy
CPT/HCPCS: 71046; 93005; 93010